=== PATIENT | female | born 2000 ===

== ENCOUNTER 2025-01-22 07:21 | Emergency (ER) | payer MEDICAID, SELFPAY ==
[2025-01-22 07:25] VITALS: BP 126/72; PULSE 74; RESP 20; TEMP 36.6; O2SAT 100; BMI 23.9
[2025-01-22 07:53] LABS: IDNOW Serial# 58CA691E; Strep A Nucleic Acid Negative (Negative)
--- NOTE | 2025-01-22 08:14 | ED.URI ---
HPI - URI/Sore Throat General Chief Complaint: Upper Respiratory Symptoms Stated Complaint: Sore throat, headache Time Seen by Provider: 01/22/25 07:55 Source: patient Mode of arrival: ambulatory Limitations: no limitations History of Present Illness HPI Narrative: This is a 24 years old female presented to the emergency department complaining of URI symptoms including sore throat nasal congestion denies any vomiting any diarrhea any fever. MD elicited complaint: sore throat, rhinorrhea and nasal congestion Onset (ago): day(s) (1) Consistency: constant Severity: moderate Description of mucous: clear Able to tolerate fluids by mouth: Yes Exacerbating factors: nothing Associated symptoms: denies other symptoms Related Data Allergies Allergy/AdvReac Type Severity Reaction Status Date / Time No Known Allergies Allergy Verified 01/22/25 07:27 Review of Systems Constitutional: Constitutional: Reports no additional constitutional complaints Eyes: Eyes: Reports no additional eye complaints Respiratory: Respiratory: Reports no additional respiratory complaints PMFSH Past Medical History PMF Narrative: Denies any major medical problems Social History Social History Advance Directives: No Advance Directives Information Provided: Yes Do you have a plan to hurt others: No Plan Physical Exam Vital Signs: Vital Signs: Last Vital Signs Temp 97.7 F 01/22/25 08:56 Pulse 79 01/22/25 08:56 Resp 15 01/22/25 08:56 BP 106/53 L 01/22/25 08:56 Pulse Ox 98 01/22/25 08:56 O2 Del Method Room Air 01/22/25 08:46 BMI result Body Mass Index 23.9 Const: General: cooperative Orientation/consciousness: oriented to person and patient oriented x3 HEENT: Head: Yes normal to inspection General nose exam: Normal external nose present Face and sinus: Yes normal facial exam Mouth: Normal oral and palatal mucosa present Throat: Yes other (Redness of the pharynx) Neck: Neck: Yes normal visual inspection Chest: Chest palpation & inspection: normal inspection of the chest Resp: Effort & Inspection: normal respiratory effort Auscultation: clear to auscultation bilaterally Cardio: Jugular venous distension: no JVD Rate: regular rate Rhythm: regular rhythm GI: Inspection: Yes normal to inspection Palpation (GI): Soft to palpation Percussion: Yes normal to percussion Skin: General skin exam: no rashes or lesions noted Lesions: no lesions Rashes: no rashes Wounds: no wounds Neuro: General: oriented to person and patient oriented x3 Cranial nerves: Yes CN's II-XII intact bilaterally Course Reevaluation(s) Reevaluation #1: Viral panel negative strep negative anticipate discharge Time: 08:37 Medications Administered Discontinued Medications Generic Name Dose Route Start Last Admin Trade Name [facility] PRN Reason Stop Dose Admin Ibuprofen 800 mg 01/22/25 08:01 01/22/25 08:45 Ibuprofen 800 Mg Tablet PO 01/22/25 08:02 800 mg ONCE ONE Administration Medical Decision Making Medical Decision Making [facility] Narrative: Patient is here with URI symptoms we will go ahead and Differential Diagnosis Differential Diagnoses: The differential diagnosis associated with the presentation includes Viral URI/flu/COVID Admission/Observation Consideration of admission/observation: Escalation of care including admission/observation considered Lab Data [facility] Lab Attestation statement: I reviewed the patient's lab results. Labs: Lab Results 01/22/25 Range/Units 07:33 Influenza Type A (PCR) NEGATIVE (Negative) Influenza Type B (PCR) NEGATIVE (Negative) RSV RNA Qual (PCR) NEGATIVE (Negative) SARS-CoV-2 RNA (RT-PCR) NEGATIVE (Negative) S. pyogenes GrpA JUSTINO Negative (Negative) Tests considered The following testing was considered but not selected: I consider chest x-ray however satting 100% breathing at 20 no fever Discharge Plan Discharge Clinical Impression: Upper respiratory infection Patient Disposition: Home, Self-Care Instructions: Upper Respiratory Infection (DC) Additional Instructions: Follow-up with your primary care physician and drink a lot of fluids and take ibuprofen as needed Stand Alone Forms: Work/School Release Interventions: ED Discharge Assessment Last Done: 01/22/25 08:56 Discharge Date/Time: 01/22/25 08:57 Print Language: Trinidadian
[2025-01-22 08:19] LABS: Influenza A PCR NEGATIVE (Negative); Influenza B PCR NEGATIVE (Negative); Resp Syncy Virus RNA Qual PCR NEGATIVE (Negative); SARS COV2 PCR INHOUSE NEGATIVE (Negative)
[2025-01-22] MEDS: Ibuprofen 800 MG TABLET PO (08:45)
[2025-01-22 08:46] VITALS: BP 106/53; PULSE 79; RESP 15; TEMP 36.5; O2SAT 98
[2025-01-22 08:56] VITALS: BP 106/53; PULSE 79; RESP 15; TEMP 36.5; O2SAT 98
== END 2025-01-22 08:57 | disposition home or self-care (01) ==
PROVIDERS: Emergency Provider Emergency Medicine
DX: J06.9 Acute upper respiratory infection, unspecified (principal); J02.9 Acute pharyngitis, unspecified; J34.89 Other specified disorders of nose and nasal sinuses; R09.81 Nasal congestion; Z03.818 Encounter for observation for suspected exposure to other biological agents ruled out
CPT/HCPCS: 0241U; 87651; 99283

== ENCOUNTER 2025-02-19 17:26 | Emergency (ER) | payer MEDICAID, SELFPAY ==
[2025-02-19 17:33] VITALS: BP 120/85; PULSE 122; O2SAT 99
[2025-02-19 17:46] VITALS: BP 133/75; PULSE 97; RESP 20; TEMP 36.5; O2SAT 97; BMI 22.8
[2025-02-19 18:37] LABS: MANUAL DIFF FLAG NO
[2025-02-19 18:56] LABS: Basophils Percent Auto 0.6 % (0-2); Eosinophils Absolute Auto 0.1 X10*3/uL (0.0-0.4); Eosinophils Percent Auto 0.8 % (0-4); Hematocrit 41.2 % (37.0-47.0); Hemoglobin 14.3 g/dl (12.0-16.0); Imm Gran Abs Auto 0.01 X10*3/uL (0.00-0.03); Imm Gran Pct Auto 0.1 % (0.0-0.4); Lymphocytes Absolute Auto 1.8 X10*3/uL (1.2-4.9); Lymphocytes Percent Auto 25.2 % (20-40); Mean Corpuscular HGB Conc 34.7 g/dl (31.0-35.0); Mean Corpuscular Hemoglobin 30.7 pg (27.0-33.0); Mean Corpuscular Volume 88.4 fL (80.0-98.0); Mean Platelet Volume 9.1 fL (9.4-12.3); Monocytes Absolute Auto 0.5 X10*3/uL (0.1-1.2); Monocytes Percent Auto 7.2 % (2-11); Neutrophils Absolute Auto 4.7 x10*3/uL (2.0-8.3); Neutrophils Percent Auto 66.1 % (45-73); Platelet Count 285 X10*3/uL (160-400); Red Blood Count 4.66 X10*6/uL (4.20-5.50); Red Cell Distribution Width 12.3 % (11.0-16.0); White Blood Count 7.1 X10*3/uL (4.8-10.8)
[2025-02-19 19:01] LABS: Alanine Aminotransferase 17 U/L (0-31); Albumin Level 5.2 g/dL (3.5-5.0); Alkaline Phosphatase 58 U/L (39-117); Anion Gap 12 (12-20); Aspartate Amino Transferase 19 U/L (5-31); Bilirubin Total 0.8 mg/dL (0.0-1.0); Blood Urea Nitrogen 12 mg/dL (9-16); Calcium 10.2 mg/dL (8.4-10.2); Carbon Dioxide 28 mmol/L (22-29); Chloride 106 mmol/L (96-108); Creatinine Clr Calc Pharmacy 93.2; Estimated Glomerular Filt Rate > 60; Glucose Random 93 mg/dL (60-115); Potassium 3.4 mmol/L (3.3-5.1); Sodium 143 mmol/L (135-145); Total Protein 8.5 g/dL (6.5-8.0)
[2025-02-19 19:03] LABS: HCG Quantitative < 2 mIU/mL; Troponin-I High Sensitivity < 2.7 ng/L (<3.5-17.0)
[2025-02-19 19:46] VITALS: BP 106/60; PULSE 82; RESP 20; TEMP 36.4; O2SAT 99
--- NOTE | 2025-02-19 19:58 | ECG_ITS ---
Test Reason : CHEST PAIN Blood Pressure : */* mmHG Vent. Rate : 100 BPM Atrial Rate : 100 BPM P-R Int : 116 ms QRS Dur : 76 ms QT Int : 354 ms P-R-T Axes : 64 70 40 degrees QTcB Int : 456 ms Normal sinus rhythm Normal ECG No previous ECGs available Referred By: Digna Winkler Electronically Signed By: ELIZA MICHAELS MD
[2025-02-19 20:04] LABS: Appearance Urine Clear; Color Urine Yellow; Glucose Urine UA Negative (Negative); Leukocyte Esterase Urine Negative (Negative); Nitrite Urine Negative (Negative); Urine Blood Negative (Negative); Urine Ketones 40 mg/dL (Negative); Urine Protein Negative (Neg-Trace)
[2025-02-19 20:08] LABS: Bacteria Urine Trace (None Seen); Hyaline Casts Urine 0-2 /LPF (0-2); RBC Urine 0-2 /HPF (0-2); WBC Urine 0-5 /HPF (0-5)
[2025-02-19 20:14] LABS: Amphetamine Screen Urine Not Detected (Not Detect); Barbiturates, Urine Not Detected (Not Detect); Benzodiazepines Screen Urine Not Detected (Not Detect); Buprenorphine Scr Not Detected (Not Detect); Cannabinoid Screen Urine Not Detected (Not Detect); Cocaine Screen Urine Not Detected (Not Detect); Fentanyl, urine Not Detected (Not Detect); Methadone Screen, Urine Not Detected (Not Detect); Opiate Screen Urine Not Detected (Not Detect); Oxycodone Screen Urine Not Detected (Not Detect); Phencyclidine Screen Urine Not Detected (Not Detect)
[2025-02-19 20:26] LABS: Ethanol < 10 mg/dL
--- NOTE | 2025-02-19 22:41 | ED.CHESTPAIN ---
HPI - Chest Pain General Chief Complaint: Chest Pain Stated Complaint: anxiety Time Seen by Provider: 02/19/25 18:10 Source: patient Limitations: language barrier History of Present Illness ED Provider: Digna Winkler PA-C HPI narrative: 25-year-old female with a history of anxiety presents with multiple complaints. Patient states she is having repetitive episodes that consist of chest tightness, nausea, dizziness, full body shaking, numbness to her hands, legs and mouth, this past week. Today we will be her 3rd episode. Per her family who is at bedside, the patient has numerous psychosocial stressors. The patient currently sees a therapist, she does not take any medication for her anxiety. Denies SI or HI. Denies recent cough or cold symptoms. No fever. Denies new activity that could have strained her chest wall. Related Data Allergies Allergy/AdvReac Type Severity Reaction Status Date / Time No Known Allergies Allergy Verified 02/19/25 17:49 Review of Systems Review of Systems: Yes all other systems are reviewed and are negative Constitutional: Constitutional: Denies fatigue, Denies fever(s) and Denies headache(s) ENT: Reports dizziness and Denies headache(s) Cardiovascular: Cardiovascular: Reports chest pain and Denies dyspnea Respiratory: Respiratory: Denies cough and Denies dyspnea Gastrointestinal: Gastrointestinal: Denies abdominal pain and Reports nausea Musculoskeletal: Musculoskeletal: Reports numbness and Reports tingling Neurologic: Reports dizziness, Denies headache(s), Reports numbness, Reports tingling and Reports tremor(s) Endocrine: Endocrine: Denies fatigue PMFSH Past Medical History Attestation statement: The following information was validated with the patient. Social History Social History Advance Directives: No Advance Directives Information Provided: No Physical Exam Vital Signs: Vital Signs: Last Vital Signs Temp 97.6 F 02/19/25 19:46 Pulse 82 02/19/25 19:46 Resp 20 02/19/25 19:46 BP 106/60 02/19/25 19:46 Pulse Ox 99 02/19/25 19:46 O2 Del Method Room Air 02/19/25 19:46 BMI result Body Mass Index 22.8 Const: Other: Alert well-appearing, becomes tearful easily while interviewing the patient Orientation/consciousness: patient oriented x3 Resp: Effort & Inspection: normal respiratory effort Cardio: Other: Normal peripheral perfusion Skin: Other: Warm dry no rash Neuro: General: patient oriented x3, gait normal, no focal motor deficits and CN's II-XI intact bilaterally Psych: Other: Patient emotionally labile, becomes tearful easily, wringing her hands and repetitively touching her hair while being interviewed Course Reevaluation(s) Reevaluation #1: Speaking with the Maria Elena from the care team, the patient does see a therapist, however she only sees her every 3 weeks. She is currently not on medication, therapist was supposed to help her connect with a psychiatrist for potential medications. The patient is alex for safety, she is not suicidal, she has been given outpatient resources. She is pleased with her consult, in his eager for discharge at this time. Time: 22:46 Medical Decision Making Medical Decision Making MDM Narrative: 25-year-old female with a history of anxiety presents with multiple complaints. Patient states she is having repetitive episodes that consist of chest tightness, nausea, dizziness, full body shaking, numbness to her hands, legs and mouth, this past week. Today we will be her 3rd episode. Per her family who is at bedside, the patient has numerous psychosocial stressors. The patient currently sees a therapist, she does not take any medication for her anxiety. Denies SI or HI. Denies recent cough or cold symptoms. No fever. Denies new activity that could have strained her chest wall. Problem: Anxiety History: Per patient I have considered the following differential diagnoses: SI, HI, decompensated psychiatric illness, drug/alcohol intoxication, ACS, anxiety, panic attack Plan: ACS was considered, to note the patient has no risk factors for coronary artery disease her heart score is 0. Screening labs including cardiac enzymes EKG were obtained. The patient's anxiety appears poorly controlled, she is eager to speak with our care team. We will place a consult. Thought about other reasons for her discomfort, viral syndrome/pneumonia etc., however she has not had any symptoms. She also has no mechanism of injury to suggest chest wall strain. I do believe her discomfort is secondary to anxiety with panic attacks, she has had multiple this week. I have independently reviewed the following tests: Labs: No leukocytosis, not anemic, not , no electrolyte abnormality, U tox negative, ethanol negative, troponin negative EKG: Normal sinus rate of 100, no ischemic changes no ectopy QTC 456 Lab Data 02/19/25 18:32 02/19/25 18:32 Labs: Lab Results 02/19/25 02/19/25 Range/Units 18:32 19:51 WBC 7.1 (4.8-10.8) X10*3/uL RBC 4.66 (4.20-5.50) X10*6/uL Hgb 14.3 (12.0-16.0) g/dl Hct 41.2 (37.0-47.0) % MCV 88.4 (80.0-98.0) fL MCH 30.7 (27.0-33.0) pg MCHC 34.7 (31.0-35.0) g/dl RDW 12.3 (11.0-16.0) % Plt Count 285 (160-400) X10*3/uL MPV 9.1 L (9.4-12.3) fL Immature Gran % (Auto) 0.1 (0.0-0.4) % Neut % (Auto) 66.1 (45-73) % Lymph % (Auto) 25.2 (20-40) % [place] % (Auto) 7.2 (2-11) % Eos % (Auto) 0.8 (0-4) % Baso % (Auto) 0.6 (0-2) % Lymph # (Auto) 1.8 (1.2-4.9) X10*3/uL [place] # (Auto) 0.5 (0.1-1.2) X10*3/uL Eos # (Auto) 0.1 (0.0-0.4) X10*3/uL Baso # (Auto) 0.0 (0.0-0.2) X10*3/uL Abs Immat Gran (auto) 0.01 (0.00-0.03) X10*3/uL Absolute Neuts (auto) 4.7 (2.0-8.3) x10*3/uL Absolute Nucleated RBC 0.000 (0.0-0.012) X10*3/uL Nucleated RBC % (auto) 0.0 (0.0-0.2) /100WBC Sodium 143 (135-145) mmol/L Potassium 3.4 (3.3-5.1) mmol/L Chloride 106 (96-108) mmol/L Carbon Dioxide 28 (22-29) mmol/L Anion Gap 12 (12-20) BUN 12 (9-16) mg/dL Creatinine 0.75 (0.5-1.4) mg/dL Estim Creat Clear Calc 93.2 Estimated GFR > 60 Random Glucose 93 (60-115) mg/dL Calcium 10.2 (8.4-10.2) mg/dL Total Bilirubin 0.8 (0.0-1.0) mg/dL AST 19 (5-31) U/L ALT 17 (0-31) U/L Alkaline Phosphatase 58 (39-117) U/L Troponin I High Sens < 2.7 (<3.5-17.0) ng/L Total Protein 8.5 H (6.5-8.0) g/dL Albumin 5.2 H (3.5-5.0) g/dL Beta HCG, Quant < 2 mIU/mL Urine Color Yellow Urine Appearance Clear Urine pH 8.0 (5.0-9.0) Ur Specific [place] 1.010 (1.005-1.025) Urine Protein Negative (Neg-Trace) mg/dL Urine Glucose (UA) Negative (Negative) mg/dL Urine Ketones 40 (Negative) mg/dL Urine Blood Negative (Negative) Urine Nitrite Negative (Negative) Ur Leukocyte Esterase Negative (Negative) Urine RBC 0-2 (0-2) /HPF Urine WBC 0-5 (0-5) /HPF Ur Squamous Epith Cells 3-5 (0-2) /HPF Urine Bacteria Trace (None Seen) Hyaline Casts 0-2 (0-2) /LPF Urine Opiates Screen Not Detected (Not Detect) Ur Buprenorphine Scrn Not Detected (Not Detect) ng/mL Ur Oxycodone Screen Not Detected (Not Detect) ng/mL Urine Methadone Screen Not Detected (Not Detect) ng/mL Urine Fentanyl Screen Not Detected (Not Detect) Ur Barbiturates Screen Not Detected (Not Detect) Ur Phencyclidine Scrn Not Detected (Not Detect) Ur Amphetamines Screen Not Detected (Not Detect) U Benzodiazepines Scrn Not Detected (Not Detect) Urine Cocaine Screen Not Detected (Not Detect) U Marijuana (THC) Screen Not Detected (Not Detect) Ethyl Alcohol < 10 mg/dL Discharge Plan Discharge Clinical Impression: Anxiety, Panic attack Patient Disposition: Home, Self-Care Instructions: Anxiety (ED), Panic Attack (ED) Additional Instructions: All of your screening labs including a cardiac enzymes were normal. There were no concerning changes on the EKG. You were seen by our care team, you were given resources for your anxiety. Continue to keep contact with your therapist. Call them tomorrow to schedule an appointment. Print Language: Greek
[2025-02-19 22:50] VITALS: BP 106/65; PULSE 88; RESP 20; TEMP 36.6; O2SAT 99
[2025-02-19 23:09] VITALS: BP 106/65; PULSE 88; RESP 20; TEMP 36.6; O2SAT 99
== END 2025-02-19 23:13 | disposition home or self-care (01) ==
PROVIDERS: Emergency Medicine; Physician Assistant Medical; Emergency Provider Emergency Medicine Emergency Medical Services
DX: F41.0 Panic disorder [episodic paroxysmal anxiety] (principal); R07.89 Other chest pain; F41.9 Anxiety disorder, unspecified; R42 Dizziness and giddiness; R10.2 Pelvic and perineal pain; Z51.81 Encounter for therapeutic drug level monitoring; Z79.899 Other long term (current) drug therapy
CPT/HCPCS: 36415; 80053; 80307; 81001; 84484; 84702; 85025; 93005; 99284; S9485

== ENCOUNTER → 2025-02-19 19:58 | Outpatient (BNV) | payer MEDICAID, SELFPAY | PROVIDERS: Emergency Provider Emergency Medicine Emergency Medical Services; Visit Provider Internal Medicine Cardiovascular Disease | DX: R07.9 Chest pain, unspecified (principal) | CPT/HCPCS: 93010 ==

== ENCOUNTER 2025-02-22 12:06 | Outpatient (REF) | payer MEDICAID, SELFPAY ==
[2025-02-22 13:49] LABS: MANUAL DIFF FLAG NO
[2025-02-22 13:59] LABS: Basophils Percent Auto 0.6 % (0-2); Eosinophils Absolute Auto 0.1 X10*3/uL (0.0-0.4); Eosinophils Percent Auto 2.5 % (0-4); Hematocrit 38.8 % (37.0-47.0); Hemoglobin 13.2 g/dl (12.0-16.0); Lymphocytes Absolute Auto 1.7 X10*3/uL (1.2-4.9); Lymphocytes Percent Auto 34.4 % (20-40); Mean Corpuscular Hemoglobin 30.8 pg (27.0-33.0); Mean Corpuscular Volume 90.7 fL (80.0-98.0); Mean Platelet Volume 9.7 fL (9.4-12.3); Monocytes Absolute Auto 0.4 X10*3/uL (0.1-1.2); Monocytes Percent Auto 8.2 % (2-11); Neutrophils Absolute Auto 2.6 x10*3/uL (2.0-8.3); Neutrophils Percent Auto 54.3 % (45-73); Platelet Count 268 X10*3/uL (160-400); Red Blood Count 4.28 X10*6/uL (4.20-5.50); Red Cell Distribution Width 12.2 % (11.0-16.0); White Blood Count 4.9 X10*3/uL (4.8-10.8)
[2025-02-22 14:25] LABS: Alanine Aminotransferase 11 U/L (0-31); Albumin Level 4.6 g/dL (3.5-5.0); Alkaline Phosphatase 49 U/L (39-117); Anion Gap 11 (12-20); Aspartate Amino Transferase 16 U/L (5-31); Bilirubin Total 0.9 mg/dL (0.0-1.0); Blood Urea Nitrogen 13 mg/dL (9-16); Calcium 9.3 mg/dL (8.4-10.2); Carbon Dioxide 29 mmol/L (22-29); Chloride 107 mmol/L (96-108); Cholesterol 172 mg/dL (<200); Estimated Glomerular Filt Rate > 60; Glucose Random 84 mg/dL (60-115); HDL Cholesterol 69 mg/dL (>40); LDL Cholesterol Calculated 93 mg/dL (<100); Potassium 3.7 mmol/L (3.3-5.1); Sodium 143 mmol/L (135-145); Total Protein 7.5 g/dL (6.5-8.0); Triglycerides 53 mg/dL (<150)
[2025-02-22 14:42] LABS: TSH reflex Free T4 0.71 uIU/mL (0.32-4.0)
[2025-02-24 03:25] LABS: HIV AB/AG Nonreactive (Nonreactive); HIV Num 1 0.07 S/CO (0.00-0.99); ~HepC Num1 0.18 S/CO (0.00-0.79); ~Hepatitis C Antibody Nonreactive (Nonreactive)
== END 2025-02-22 12:07 | disposition home or self-care (01) ==
LOC: HO.HHCL 12:06
PROVIDERS: Visit Provider Internal Medicine
DX: F41.9 Anxiety disorder, unspecified (principal); F32.A Depression, unspecified
CPT/HCPCS: 36415; 80053; 80061; 84443; 85025; 86803; 87389

== ENCOUNTER 2025-03-21 11:16 | Outpatient (REF) | payer MEDICAID, SELFPAY ==
--- NOTE | ~2025-03-21 | XR_ITS ---
EXAMINATION: XR KNEE, RIGHT CLINICAL INFORMATION: right knee pain COMPARISON: None available. TECHNIQUE: 3 view of the right knee. FINDINGS: There is a joint effusion. Joint spaces are maintained. There are no osteophytes. There is no abnormal sclerosis. No fracture is evident. XR/XR knee RT 3V IMPRESSION: Unremarkable right knee Electronically signed by: Pablo Solares MD 03/21/2025 12:39 PM EDT
== END 2025-03-21 11:17 | disposition home or self-care (01) ==
LOC: HO.HHCX 11:16
PROVIDERS: PCP Internal Medicine; Visit Provider Internal Medicine
DX: M25.561 Pain in right knee (principal)
CPT/HCPCS: 73562

== ENCOUNTER → 2025-03-21 11:32 | Outpatient (BNV) | payer MEDICAID, SELFPAY | PROVIDERS: PCP Internal Medicine; Visit Provider Radiology Diagnostic Radiology | DX: M25.461 Effusion, right knee (principal) | CPT/HCPCS: 73562 ==